=== PATIENT | female | born 1955 | race Asian ===

== ENCOUNTER 2018-11-03 07:24 | Day surgery (SDC) | payer BC ==
[~2018-11-03] VITALS: Ht 144.8 cm; Wt 47.1 kg
[2018-11-03 07:30] VITALS: BP 161/75; PULSE 102; RESP 16; Ht 144.8 cm; Wt 47.1 kg
[2018-11-03] MEDS ORDERED: HYDR-4011 PO (08:07)
[2018-11-03] MEDS ORDERED: SOD CHLORIDE 0.9% 1,000 ML IV SCH (08:48)
[2018-11-03] MEDS ORDERED: POLYMYXIN/BACITRACIN 1L IRRIG IRR ONE (09:00)
[2018-11-03] MEDS ORDERED: CEFAZOLIN 1 GM/50 ML (PMX) 50 ML IVPB ONE ×2 (09:00→09:33)
--- NOTE | 2018-11-03 09:29 | PREAC ---
Date/Time of Note Date/Time of Note DATE: 11/03/18 TIME: 09:28 Anesthesia Eval and Record Evaluation Time Pre-Procedure Interview DATE: 11/03/18 TIME: 09:28 Age 63 Sex female NPO: 8 hrs Preoperative diagnosis colon ca Planned procedure port a cath placement Past Medical History Past Medical History: None Surgery & Anesthesia Issues No known issue Meds Anticoagulation: No Beta Shaan within 24 hr: No Reason Beta Shaan not given: Pt. not on B-Shaan Reported Medications Hydrocodone/Acetaminophen ([place] 5-325 Tablet) 1 Each Tablet, 1 EACH PO Q6 PRN for PAIN, TAB 11/03/18 Current Medications Cefazolin Sodium 50 ml @ 100 mls/hr ONCE ONCE IVPB ; Start 11/03/18 at 09:00; Stop 11/03/18 at 09:29 Sodium Chloride 1,000 ml @ 30 mls/hr Q24H IV ; Start 11/03/18 at 08:48 Meds reviewed: Yes Allergies Coded Allergies: No Known Allergy (Unverified , 11/03/18) Allergies Reviewed: Yes Labs/Studies Labs Reviewed: Reviewed by anesthesiologist test: N/A Studies: ECG (n/a), CXR (n/a) Pre-procedure Exam Last vitals Vital Signs Date Temp Pulse Resp B/P (MAP) Pulse Ox O2 O2 Flow FiO2 Time Delivery Rate 11/03/18 97.7 102 16 161/75 98 07:30 (103) Airway: Adequate mouth opening Mallampati: Mallampati I Teeth: Abnormal (petia denture) Lung: Normal Heart: Normal ASA Physical Status ASA physical status: 2 Emergency: None Planned Anesthetic General/MAC: MAC Planned Pain Management Parenteral pain med Pre-operative Attestations Prior to commencing anesthesia and surgery, the patient was re-evaluated, there was verification of: *The patient's identity *The results of appropriate recent lab work and preoperative vital signs *The above evaluation not changing prior to induction *Anesthetic plan, risk benefits, alternative and complications discussed with patient/family; questions answered; patient/family understands, accepts and wishes to proceed. YENIFER GUERRERO MD November 03, 2018 09:29
[2018-11-03] MEDS ORDERED: HEPARIN 1000 UNITS/ML 10 ML INJ ONE (09:32)
[2018-11-03] MEDS ORDERED: LIDOCAINE 1%/EPI (1:100,000) (MDV) 20 ML ONE ×2 (09:32→10:13)
[2018-11-03] MEDS ORDERED: PROPOFOL 20 ML ONE (09:33)
[2018-11-03] MEDS ORDERED: FENTAnyl 50 MCG/ML VIAL ONE (09:34)
[2018-11-03] MEDS ORDERED: MIDAZOLAM 1 MG/ML 2 ML INJ ONE (09:34)
[2018-11-03] MEDS ORDERED: METOPROLOL 5 MG INJ ONE (09:48)
[2018-11-03] MEDS ORDERED: LABETALOL HCL 20MG INJ IV PRN (10:00)
[2018-11-03] MEDS ORDERED: HYDROmorphONE 1 MG/5 ML IV SYRINGE IV PRN ×3 (10:00)
[2018-11-03] MEDS ORDERED: hydrALAzine 20 MG INJ IV PRN (10:00)
[2018-11-03] MEDS ORDERED: FENTAnyl 50 MCG/ML VIAL IV PRN ×3 (10:00)
[2018-11-03] MEDS ORDERED: DIPHENHYDRAMINE 50 MG INJ IV PRN (10:00)
[2018-11-03] MEDS ORDERED: MEPERIDINE 25 MG INJ IV PRN (10:00)
[2018-11-03 10:52] VITALS: BP 138/66; PULSE 92; RESP 25
[2018-11-03 10:57] VITALS: BP 143/70; PULSE 92; RESP 20
[2018-11-03 11:02] VITALS: BP 144/68; PULSE 94; RESP 26
[2018-11-03 11:07] VITALS: BP 142/65; PULSE 94; RESP 23
[2018-11-03 11:39] VITALS: BP 137/65; PULSE 99; RESP 18
--- NOTE | 2018-11-03 11:41 | PAC ---
Date/Time of Note Date/Time of Note DATE: 11/03/18 TIME: 11:41 Post-Anesthesia Notes Post-Anesthesia Note Last documented vital signs Vital Signs Date Temp Pulse Resp B/P (MAP) Pulse Ox O2 O2 Flow FiO2 Time Delivery Rate 11/03/18 98.8 94 23 142/65 99 Room Air 11:07 (90) 11/03/18 98.8 10:52 Activity: WNL Respiratory function: WNL Cardiovascular function: WNL Mental status: Baseline Pain reasonably controlled: Yes Hydration appropriate: Yes Nausea/Vomiting absent: No YENIFER GUERRERO MD November 03, 2018 11:41
--- NOTE | 2018-11-05 11:14 | HPN ---
Date/Time of Note Date/Time of Note DATE: 11/05/18 TIME: 11:10 Interval H&P Admission Note Pt. seen H&P reviewed: No system changes EDWIN RIVERA MD November 05, 2018 11:14
== END 2018-11-03 12:30 | disposition home or self-care (01) ==
LOC: RAD 07:24 → SDS 07:24 → RAD 12:30
PROVIDERS: ATTEND Internal Medicine Hematology & Oncology
DX: C19 Malignant neoplasm of rectosigmoid junction (principal)
CPT/HCPCS: 36561; 76942; C1788; J0690; J1644; J2250; J3010